=== PATIENT | male | born 1990 | race Caucasian/White ===

== ENCOUNTER 2019-03-18 07:49 | Emergency (ER) | payer SELFPAY ==
[2019-03-18 07:58] VITALS: BP 125/85
[2019-03-18] MEDS ORDERED: DEXAMETHASONE 10 MG/ML VIAL PO STA (08:08)
[2019-03-18] MEDS ORDERED: CHERRY SYRUP 10 ML UDC PO ONE (08:08)
--- NOTE | 2019-03-18 08:11 | ED Physician Documentation ---
PD HPI URI - Stated complaint Stated Complaint: CONGESTION/COUGH - Chief complaint Chief Complaint: Fever - History obtained from History obtained from: Patient - History of Present Illness Timing - onset: How many days ago (5) Timing duration: Days (5) Timing details: Gradual onset, Still present Associated symptoms: Nasal congestion, Rhinorrhea, Productive cough, NVD Improves by: Rest Similar symptoms before: Has not had sx before Recently seen: Not recently seen - Additional information Additional information: Previously well 28-year-old male who describes himself is never been sick has developed cough and congestion sneezing about 5 days ago and he is beginning to take some [id number] preparations for this and now he is developed some nausea vomiting and diarrhea as well. He has had 3 episodes of diarrhea 2 episodes of vomiting. He does not feel that he is dehydrated he has been able to drink plenty of fluids. He felt that he might of had a fever when this initiated he does not feel like he has a fever now. He is come to the emergency department with a persistence of his illness. When he vomited this morning after taking DayQuil he became concerned. Review of Systems Constitutional: reports: Fever Eyes: denies: Decreased vision Ears: denies: Ear pain Nose: reports: Rhinorrhea / runny nose, Congestion. denies: Sinus pressure / pain Throat: denies: Sore throat Cardiac: denies: Chest pain / pressure Respiratory: reports: Cough. denies: Dyspnea, Wheezing GI: reports: Nausea, Vomiting, Diarrhea : denies: Dysuria, Frequency PD PAST MEDICAL HISTORY - Allergies Allergies/Adverse Reactions: Allergies Allergy/AdvReac Type Severity Reaction Status Date / Time No Known Drug Allergies Allergy Verified 03/18/19 07:53 PD ED PE NORMAL - Vitals Vital signs reviewed: Yes (hypertensive ) - General General: Alert and oriented X 3, No acute distress, Well developed/nourished - HEENT HEENT: Atraumatic, PERRL, EOMI, Ears normal, Moist mucous membranes, Pharynx benign, Dentition benign - Neck Neck: Supple, no meningeal sign, No bony TTP - Cardiac Cardiac: RRR, No murmur - Respiratory Respiratory: No respiratory distress, Clear bilaterally - Abdomen Abdomen: Normal bowel sounds, Soft, Non tender, Non distended, No organomegaly - Back Back: No CVA TTP, No spinal TTP - Derm Derm: Normal color, Warm and dry, No rash - Extremities Extremities: No deformity, No edema - Neuro Neuro: Alert and oriented X 3, 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, No motor deficit, No sensory deficit, Normal speech Eye Opening: Spontaneous Motor: Obeys Commands Verbal: Oriented GCS Score: 15 - Psych Psych: Normal mood, Normal affect Results - Vitals Vitals: Vital Signs - 24 hr 03/18/19 07:53 Temperature 36.7 C Heart Rate 70 Respiratory 18 Rate Blood Pressure 125/85 H O2 Saturation 98 Oxygen O2 Source Room air - Labs Labs: Laboratory Tests 03/18/19 08:07 Influenza A (Rapid) Negative Influenza B (Rapid) Negative Procedures - IVC sono (time) 0805 Bedside IVC sono: IVC measures (cm) (1.49), Euvolemia PD MEDICAL DECISION MAKING - ED course Complexity details: reviewed results, re-evaluated patient, considered differential, d/w patient ED course: Previously well 28-year-old male has had URI symptoms and has been using [id number] preparations for treatment of this. He is developed some vomiting and some diarrhea associated with this which has been mild and few episodes. He did not get dehydrated related to the diarrhea and vomiting. I do not see much in the way of inflammation to his ear nose and throat his lungs are clear a swab for influenza is obtained and the patient is administered dexamethasone 10 mg orally. Departure - Departure Disposition: 01 Home, Self Care Clinical Impression: Viral URI with cough Condition: Stable Instructions: ED URI Viral Follow-Up: [facility] [Provider Group] Forms: Activity restrictions
== END 2019-03-18 08:49 | disposition home or self-care (01) ==
LOC: ED 07:49
DX: J06.9 Acute upper respiratory infection, unspecified (principal); R11.2 Nausea with vomiting, unspecified; R19.7 Diarrhea, unspecified
CPT/HCPCS: 87275; 87276; 99283; 99284; A9270